=== PATIENT | male | born 1955 | race Caucasian/White ===

== ENCOUNTER 2017-04-15 06:49 | Day surgery (SDC) | payer MEDICAID ==
[2017-04-15] MEDS ORDERED: BUPIVACAINE 0.5% 30 ML SDV ONE (07:14)
[2017-04-15] MEDS ORDERED: ceFAZolin 2 GM/DEXTROSE 100 ML IV ONE (07:27)
--- NOTE | 2017-04-15 07:28 | PDHPUP ---
History & Physical Update H&P update statement: This history and physical update is based on an assessment of the patient which was completed after admission or registration (within 24 hours), but prior to the surgery/procedure. H&P update: H&P reviewed & patient examined, no change in patient's condition since H&P completed
[2017-04-15] MEDS ORDERED: LR 1,000 ML IV ONE (07:35)
[2017-04-15] MEDS ORDERED: LIDOCAINE 1% 2 ML INJ ID PRN (07:35)
--- NOTE | 2017-04-15 09:00 | PDANEPAE ---
ANE History of Present Illness 62 year old male with recent URI about 10 days ago here for hernia repair. ANE Past Medical History Past Medical History: Recent URI. Productive cough stopped about 10 days ago. - Cardiovascular History Hx Hypertension: Yes Hx Arrhythmias: Yes Hx Chest Pain: No Hx Coronary Artery / Peripheral Vascular Disease: Yes Hx CHF / Valvular Disease: Yes Hx Palpitations: No Cardiovascular History Comment: cad. cabg 1998 and redo 2005. aicd. hyperlipidemia. chf - Pulmonary History Hx COPD: No Hx Asthma/Reactive Airway Disease: No Hx Recent Upper Respiratory Infection: No Hx Oxygen in Use at Home: No Hx Sleep Apnea: No Sleep Apnea Screening Result - Last Documented: Positive Pulmonary History Comment: hellen triggers - Neurologic History Hx Cerebrovascular Accident: No Hx Seizures: No Hx Dementia: No - Endocrine History Hx Diabetes: No Hypothyroid: Yes Endocrine History Comment: hypothyroidism - Renal History Hx Renal Disorders: Yes Renal History Comment: difficulty urinating. dribbling - Liver History Hx Hepatic Disorders: No - Neurological & Psychiatric Hx Hx Neurological and Psychiatric Disorders: Yes Neurological / Psychiatric History Comment: depression - Cancer History Hx Cancer: No - Congenital Disorder History Hx Congenital Disorders: No - GI History Hx Gastrointestinal Disorders: No - Other Health History Other Health History: wears glasses - Chronic Pain History Chronic Pain: No - Surgical History Prior Surgeries: dental work. cabg 1998 and redo 2005. aicd placed 07/14/2012 ANE Review of Systems - Exercise capacity METS (RN): 3 METS - Systems Constitutional: Reports: recent illness Respiratory: Reports: no symptoms (recent URI with productive cough) - Pacemaker Pacemaker Type: Permanent Pacer/Defib Pacemaker Dental Insurance Coordinator: [employer] Pacemaker Model: [id number] Pacemaker Mode: VVI Pacemaker Set Rate: 40 Date Pacemaker Last Checked: 2months ago ANE Patient History - Allergies Allergies/Adverse Reactions: No Known Allergies Allergy (Verified 04/12/17 12:06) - Home Medications Home medications: home medication list seen and reviewed Home Medications: Amiodarone HCl 04/12/17 [Last Taken 04/14/17] Aspirin 81mg (*) 04/12/17 [Last Taken 04/11/17] Carvedilol BID 04/12/17 [Last Taken 04/14/17] Clopidogrel Bisulfate 04/12/17 [Last Taken 04/11/17] Entresto 49 mg/51 mg (RX) BID 04/12/17 [Last Taken 04/14/17] Herbals/Supplements -Info Only 04/12/17 [Last Taken 04/14/17] Levothyroxine 04/12/17 [Last Taken 04/14/17] Rosuvastatin Calcium 04/12/17 [Last Taken 04/14/17] Spironolactone 04/12/17 [Last Taken 04/14/17 07:00] - NPO status NPO Since - Liquids (Date): 04/14/17 NPO Since - Liquids (Time): 23:00 NPO Since - Solids (Date): 04/14/17 NPO Since - Solids (Time): 22:00 - Anes Hx Anes Hx: no prior problems - Smoking Hx Smoking Status: Never smoked Marijuana use: No - Alcohol Use Alcohol Use: Rarely - Family Anes Hx Family Anes Hx: neg - N/A Family Hx Anesthesia Complications: none ANE Labs/Vital Signs - Vital Signs Blood Pressure: 126/72 Heart Rate: 42 Respiratory Rate: 20 O2 Sat (%): 95 Height: 185.42 cm Weight: 81.329 kg ANE Physical Exam - Airway Neck exam: FROM Mallampati Score: Class 2 Mouth exam: normal dental/mouth exam - Pulmonary Pulmonary: no respiratory distress, no rales or rhonchi, clear to auscultation - Cardiovascular Cardiovascular: regular rate and rhythym, systolic murmur - ASA Status ASA Status: IV ANE Anesthesia Plan Anesthesia Plan: general endotracheal anesthesia
[2017-04-15] MEDS ORDERED: fentaNYL 100 MCG/2 ML INJ ONE ×3 (09:09→10:31)
[2017-04-15] MEDS ORDERED: PROPOFOL/EMULSION 500 MG/50 ML BOTTLE IV ONE (09:09)
[2017-04-15] MEDS ORDERED: ONDANSETRON 4 MG/2 ML VIAL ONE (09:10)
[2017-04-15] MEDS ORDERED: ROCURONIUM 50 MG/5 ML VIAL ONE (09:10)
[2017-04-15] MEDS ORDERED: DEXAMETHASONE 4 MG/ML VIAL ONE (09:10)
[2017-04-15] MEDS ORDERED: LIDOCAINE 2% 5 ML SDV ONE (09:12)
[2017-04-15] MEDS ORDERED: SUGAMMADEX SODIUM 200 MG/2 ML VIAL IVP ONE (09:54)
[2017-04-15] MEDS ORDERED: HYDROCODONE/APAP 5/325 TAB PO PRN (10:04)
[2017-04-15] MEDS ORDERED: NALOXONE HCL 0.4 MG/ML INJ IVP PRN (10:04)
[2017-04-15] MEDS ORDERED: LR 250 ML IV PRN (10:04)
[2017-04-15] MEDS ORDERED: ALBUTEROL 3 ML DEYVIAL IH PRN (10:04)
[2017-04-15] MEDS ORDERED: ACETAMINOPHEN 500 MG TAB PO PRN (10:04)
[2017-04-15] MEDS ORDERED: PROMETHAZINE HCL 25 MG/ML INJ IVP PRN (10:04)
[2017-04-15] MEDS ORDERED: LABETALOL HCL 50 MG/10 ML SYR IVP PRN (10:04)
--- NOTE | 2017-04-15 10:20 | POSTOPPROG ---
Post Op Note Date of Operation: 04/15/17 Surgeon: Aroldo Pope Railroad Car Cleaner: Britta Fraser Anesthesiologist: Rochelle Rascon Anesthesia: GET(General Endotracheal) Pre-op Diagnosis: BIH Post-op Diagnosis: Same Procedure: Laproscopic bilateral hernia repair with mesh Inf/Abcess present in the surg proc area at time of surgery?: No Depth: Deep Incisional (Fascial) EBL: Minimal
[2017-04-15] MEDS: fentaNYL 100 MCG/2 ML INJ IVP PRN ×2 (10:32→10:50)
--- NOTE | 2017-04-15 10:34 | POSTANESTH ---
Post Anesthetic Evaluation Cardiovascular Status: Normal, Stable Respiratory Status: Normal, Stable Level of Consciousness/Mental Status: Can Participate in Eval, Alert and Oriented Pain Control: Adequate, Prn Tx Ordered Nausea/Vomiting Control: Adequate, Prn Tx Ordered Complications Possibly Related to Anesthesia: None Noted
[2017-04-15 10:42] VITALS: TEMP 97.5
[2017-04-15 11:50] VITALS: BP 136/65; PULSE 50; RESP 18; O2SAT 96
--- NOTE | 2017-04-16 06:34 | GOP ---
[f rep st] OPERATIVE REPORT DATE OF OPERATION: 04/15/2017 SURGEON: Aroldo Pope MD SUBSTATION SUPERINTENDENT: ARCELIA Casillas ANESTHESIOLOGIST: Rochelle Stacy MD PREOPERATIVE DIAGNOSIS: Bilateral inguinal hernias. POSTOPERATIVE DIAGNOSIS: Bilateral inguinal hernias. PROCEDURE PERFORMED: Laparoscopic bilateral inguinal hernia repairs. FINDINGS: The patient was found to have an indirect inguinal hernia on the left and a direct inguin al hernia on the right. DESCRIPTION OF PROCEDURE: Patient was taken to the operating room, where he received satisfactory g eneral endotracheal anesthesia by Dr. Stacy. He was placed in supine position, prepped and draped in the usual sterile fashion. An infraumbilical incision was made. Dissection was extended down t o the fascia, which was incised. A subfascial tunnel was developed in the preperitoneal space, that was dissected free with a balloon dissector, which was replaced with a CO2 insufflation trocar. Tw o other trocars were placed in the lower abdominal midline. Delfino ligament was exposed bilaterally . The cords were mobilized bilaterally. Peritoneum was dissected off the cord structures. On the left, there was a moderate indirect sac which was dissected free and reduced. Hemostasis was assure d. On the right, there was no significant indirect sac. Both sides had small lipoma suture that wa s dissected free and reduced. On the right, there was a moderate-sized femoral indirect hernia. Bi lateral Covidien polyester mesh patches were inserted. On the left, a split patch was used to pass the limb around the cord structures. On the right, an onlay patch was used. Both were anchored in place with AbsorbaTack, securing it to Delfino ligament, the lacunar ligament, and the anterior abdom inal wall outside the internal ring. Hemostasis was carefully obtained. The pneumopreperitoneum wa s released and trocars were removed under direct vision. Trocar sites were closed with 0 Vicryl for the fascia, 4-0 Monocryl subcuticular stitch for the skin. All wounds were infiltrated with 0.5% M arcaine. He tolerated the procedure well. He was taken to the recovery room in good condition. Th ere were no complications. /[id number]/MODL
== END 2017-04-15 11:45 | disposition home or self-care (01) ==
LOC: FSGY 06:49
PROVIDERS: ATTEND Surgery
PROC: 0YQA4ZZ Repair Bilateral Inguinal Region, Percutaneous Endoscopic Approach (ICD-10-PCS; principal; 2017-04-15 08:30)
DX: K40.20 Bilateral inguinal hernia, without obstruction or gangrene, not specified as recurrent (principal); I25.810 Atherosclerosis of coronary artery bypass graft(s) without angina pectoris; I50.22 Chronic systolic (congestive) heart failure; R53.83 Other fatigue; R06.02 Shortness of breath
CPT/HCPCS: 49650; C1727; C1781; J0690; J1100; J2405; J2704; J3010

== ENCOUNTER 2017-09-15 18:38 | Emergency (ER) | payer MEDICAID ==
[2017-09-15 18:51] VITALS: TEMP 97.5
[2017-09-15] MEDS ORDERED: NS 500 ML IV ONE (18:53)
[2017-09-15 18:59] LABS: PLATELET COUNT 241 10^3/uL (150-400)
--- NOTE | 2017-09-15 19:01 | EDPHY ---
H & P Time Seen by Provider: 09/15/17 18:39 HPI/ROS: HPI Anxiety reaction. 62-year-old male by ambulance from his home. This patient has a long history of anxiety as well as heart disease. He has had CABG x2. He has a pacemaker. He reports he has been on multiple medications for his anxiety. Most recently has had trouble with his anxiety and insomnia. His primary care physician prescribed him trazodone recently. He has been taking that and it has been helping him sleep. He reports he was working hard on his computer all day today Ed needing songs and doing other computer work. He reports that he was sitting at his desk working on his computer when he suddenly started to have a sensation of tingling in his legs and in his hands. He also felt that his head was very full and felt lightheaded in his words but not faint. Denies any other associated symptoms. No alcohol tonight. Denies IV drugs and street drugs. ROS: Constitutional: No fever, no chills. As above. Eyes: No discharge. No changes in vision. ENT: No sore throat. No nasal congestion or rhinorrhea. Respiratory: No cough. No shortness of breath. Cardiac: No chest pain, no palpitations. Gastrointestinal: No abdominal pain, no vomiting, no diarrhea. Genitourinary: No hematuria. No dysuria or increased frequency with urination. Musculoskeletal: No back pain. No neck pain. No myalgias or arthralgias. Skin: No rashes. Neurological: No headache. No focal weakness or altered sensation. Past medical history: Hypothyroid, heart disease with CABG x2, pacemaker, anxiety, insomnia. Social history: Nonsmoker. Currently here by himself. No alcohol. Physical Exam: General Appearance: Alert, mildly anxious. Hard to get him to focus but he focuses when directed properly. This patient is responding to questions appropriately and in full sentences. This patient appears well-hydrated and well-nourished. Eyes: Pupils equal and round no pallor or injection. No lid edema, erythema or injection. Respiratory: There are no retractions, lungs are clear to auscultation with good air movement bilaterally. Cardiovascular: Regular rate and rhythm. No murmur. Gastrointestinal: Abdomen is soft and nontender, no masses, bowel sounds normal. No focal tenderness at McBurney's point. No Costa sign. Neurological: Motor sensory function is grossly intact. Cranial nerves are normal. Gait is normal. Skin: Warm and dry, no rashes. Musculoskeletal: Neck is supple and nontender. Extremities are symmetrical. All joints range without pain or impingement. Psychiatric: No agitation. No depression. Database: EKG: EKG time is 7:00 p.m.; EKG shows a narrow complex sinus bradycardia with a ventricular rate of 48. Nonspecific intraventricular conduction delay noted. The DC, QRS, QT intervals are within normal limits. There are no ST-T wave changes indicative of ischemic or injury pattern. This EKG not show significant change from prior EKG from May [id number]. No evidence of right heart strain. Interpreted by me. Imaging: Procedures: Emergency department course: Vital signs reviewed and are normal. An IV was placed by EMS. EKG obtained and read by myself. Patient's presentation is consistent with an anxiety reaction. Cardiac etiology of near syncope unlikely. Acute coronary syndrome unlikely. He declines anxiolytics, Valium or other like medications secondary to prior dependence. 7:40 p.m., patient re-evaluated. Results of emergency department workup discussed with him and his family. Vital signs reviewed and are unremarkable. He is feeling better. I recommended that he takes trazodone tonight as prescribed. He tells me that he wants to try to get off of all of his medications. I explained to him that his medications are prescribed for good reasons. He will follow up with his primary care physician who prescribes in the trazodone tomorrow and ask about alternatives. His presentation is consistent with manic behavior and anxiety. I explained to him that I thought trazodone was the appropriate drug to treat him. He stated he would take his trazodone as prescribed and follow up with his primary physician tomorrow. Return to emergency department precautions were reviewed with him. His and daughter at the bedside. They will take him home. He does know of any other complaints. He feels reassured regarding the result his diagnostic testing here. He was discharged in good condition. Differential Diagnosis: The differential diagnosis on this patient includes but is not limited to anxiety reaction. Acute coronary syndrome, arrhythmia, cardiac etiology of syncope, CVA unlikely. This represents a partial list of diagnoses considered. These considerations are based on history, physical exam, past history, reassessment and diagnostic testing. Smoking Status: Never smoked Constitutional: Initial Vital Signs Temperature (C) 36.4 C 09/15/17 18:44 Heart Rate 52 L 09/15/17 18:44 Respiratory Rate 18 09/15/17 18:44 Blood Pressure 137/74 H 09/15/17 18:44 O2 Sat (%) 99 09/15/17 18:44 O2 Delivery Mode Room Air Allergies/Adverse Reactions: No Known Allergies Allergy (Verified 04/12/17 12:06) Home Medications: Medication Instructions Recorded Amiodarone HCl 04/12/17 Aspirin 81mg (*) 04/12/17 Carvedilol BID 04/12/17 Clopidogrel Bisulfate 04/12/17 Entresto 49 mg/51 mg (RX) BID 04/12/17 Herbals/Supplements -Info Only 04/12/17 Levothyroxine 04/12/17 Rosuvastatin Calcium 04/12/17 Spironolactone 04/12/17 Acetaminophen [Tylenol ES 500 mg 500 mg PO Q6HRS PRN #0 tab 04/15/17 (*)] Medical Decision Making - Data Points Laboratory Results: Laboratory Results 09/15/17 18:40 09/15/17 18:40 09/15/17 09/15/17 18:40 18:40 WBC 6.48 10^3/uL 10^3/uL (3.80-9.50) RBC 4.73 10^6/uL 10^6/uL (4.40-6.38) Hgb 15.4 g/dL g/dL (13.7-17.5) Hct 45.5 % % (40.0-51.0) MCV 96.2 fL fL (81.5-99.8) MCH 32.6 pg pg (27.9-34.1) MCHC 33.8 g/dL g/dL (32.4-36.7) RDW 13.2 % % (11.5-15.2) Plt Count 241 10^3/uL 10^3/uL (150-400) MPV 9.7 fL fL (8.7-11.7) Neut % (Auto) 58.8 % % (39.3-74.2) Lymph % (Auto) 30.2 % % (15.0-45.0) [place] % (Auto) 7.7 % % (4.5-13.0) Eos % (Auto) 2.0 % % (0.6-7.6) Baso % (Auto) 1.1 % % (0.3-1.7) Nucleat RBC Rel Count 0.0 % % (0.0-0.2) Absolute Neuts (auto) 3.81 10^3/uL 10^3/uL (1.70-6.50) Absolute Lymphs (auto) 1.96 10^3/uL 10^3/uL (1.00-3.00) Absolute Monos (auto) 0.50 10^3/uL 10^3/uL (0.30-0.80) Absolute Eos (auto) 0.13 10^3/uL 10^3/uL (0.03-0.40) Absolute Basos (auto) 0.07 10^3/uL 10^3/uL (0.02-0.10) Absolute Nucleated RBC 0.00 10^3/uL 10^3/uL (0-0.01) Immature Gran % 0.2 % % (0.0-1.1) Immature Gran # 0.01 10^3/uL 10^3/uL (0.00-0.10) Sodium 143 mEq/L mEq/L (134-144) Potassium 4.3 mEq/L mEq/L (3.5-5.2) Chloride 103 mEq/L mEq/L (97-110) Carbon Dioxide 26 mEq/l mEq/l (22-31) Anion Gap 14 mEq/L mEq/L (8-16) BUN 23 mg/dL mg/dL (7-23) Creatinine 1.2 mg/dL mg/dL (0.7-1.3) Estimated GFR > 60 Glucose 140 mg/dL H mg/dL (70-100) Calcium 9.9 mg/dL mg/dL (8.5-10.4) Troponin I < 0.012 ng/mL ng/mL (0.000-0.034) TSH 1.520 uIU/mL uIU/mL (0.465-4.680) Medications Given: Discontinued Medications Sodium Chloride (Ns) 500 mls @ 1,000 mls/hr IV EDNOW ONE PRN Reason: Protocol Stop: 09/15/17 19:22 Last Admin: 09/15/17 19:35 Dose: 500 mls Departure - Departure Disposition: Home, Routine, Self-Care Clinical Impression: Anxiety reaction Condition: Good Instructions: Anxiety (ED) Additional Instructions: Read and follow provided instructions. Follow-up with your primary care physician tomorrow as discussed for review of your medication and discuss alternatives to trazodone. Take medication as prescribed. I feel that if you have trouble sleeping tonight you should take your trazodone as prescribed. Return to the emergency department for worsening symptoms or other serious concerns. Referrals: Patient,NotPresent [Unknown] - As per Instructions
--- NOTE | 2017-09-15 19:02 | CPEKG ---
Heart Rate: 48 RR Interval: 1250 P-R Interval: 176 QRSD Interval: 126 QT Interval: 464 QTC Interval: 415 P [place]: 28 QRS [place]: 50 T Wave [place]: 253 EKG Severity - ABNORMAL ECG - EKG Impression: SINUS BRADYCARDIA EKG Impression: NONSPECIFIC INTRAVENTRICULAR CONDUCTION DELAY EKG Impression: PROBABLE LVH WITH SECONDARY REPOL ABNRM Electronically Signed By: Dave Ospina 15-Sep-2017 21:05:13
[2017-09-15 19:37] VITALS: BP 102/55; PULSE 49; RESP 20; O2SAT 98
== END 2017-09-15 19:55 | disposition home or self-care (01) ==
LOC: EDUNIT#
DX: F41.1 Generalized anxiety disorder (principal); E86.9 Volume depletion, unspecified; Z79.82 Long term (current) use of aspirin; Z95.0 Presence of cardiac pacemaker; Z95.1 Presence of aortocoronary bypass graft

== ENCOUNTER 2017-09-16 10:52 | Emergency (ER) | payer MEDICAID ==
[2017-09-16 11:18] VITALS: BP 136/90; PULSE 55; RESP 16; TEMP 97.9; O2SAT 96
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
== END 2017-09-16 12:00 | disposition home or self-care (01) ==
LOC: SUPCPDRO 10:52 → CED 10:52
DX: F30.8 Other manic episodes (principal); T43.215A Adverse effect of selective serotonin and norepinephrine reuptake inhibitors, initial encounter; Z79.82 Long term (current) use of aspirin

== ENCOUNTER 2017-09-20 14:58 | Emergency (ER) | payer MEDICAID ==
--- NOTE | 2017-09-20 15:14 | EDPHY ---
H & P Stated Complaint: "Im here for acid reflux but it makes me feel like Im having a hrt attck" Time Seen by Provider: 09/20/17 15:13 HPI/ROS: CHIEF COMPLAINT: Chest pain, anxiety HISTORY OF PRESENT ILLNESS: The patient presents the ED with chronic chest pain. The patient has a history of coronary artery disease status post CABG. The patient is somewhat overwhelmingly concerned about medications he is been prescribed by his primary care provider including Prilosec, trazodone and potentially recommendation to begin lithium and Lunesta. The patient is under the care of Dr. Mendoza from Cardiology. The patient has been struggling with symptoms of acid reflux however is concerned about the potential toxic profile of the medications he has been prescribed. The patient contacted his identification technician today with complaints of reported worsening nonexertional chest pain and was referred to the ED for further evaluation. The patient denies any recent history of coronary intervention. He denies additional acute complaints. REVIEW OF SYSTEMS: A comprehensive 10 point review of systems is otherwise negative aside from elements mentioned in the history of present illness. Source: Patient Exam Limitations: No limitations - Personal History Current Tetanus/Diphtheria Vaccine: Unsure Current Tetanus Diphtheria and Acellular Pertussis (TDAP): Unsure - Medical/Surgical History Hx Asthma: No Hx Chronic Respiratory Disease: No Hx Diabetes: No Hx Cardiac Disease: Yes Hx Renal Disease: No Hx Cirrhosis: No Hx Alcoholism: No Hx HIV/AIDS: No Hx Splenectomy or Spleen Trauma: No Other PMH: -CABG--double bypass,8 stents?,defibrillator-icd. ?mental health struggles - Social History Smoking Status: Never smoked - Physical Exam Exam: General Appearance: Alert, no distress Eyes: Pupils equal and round no pallor or injection ENT, Mouth: Mucous membranes moist Respiratory: There are no retractions, lungs are clear to auscultation Cardiovascular: Regular rate and rhythm Gastrointestinal: Abdomen is soft and nontender, no masses, bowel sounds normal Neurological: A&O, normal motor function, normal sensory exam, normal cranial nerves Skin: Warm and dry, no rashes Musculoskeletal: Neck is supple nontender Extremities: symmetrical, full range of motion Constitutional: Initial Vital Signs Temperature (C) 37.0 C 09/20/17 15:00 Heart Rate 48 L 09/20/17 15:00 Respiratory Rate 18 09/20/17 15:00 Blood Pressure 131/78 H 09/20/17 15:00 O2 Sat (%) 95 09/20/17 15:00 O2 Delivery Mode Room Air Allergies/Adverse Reactions: No Known Allergies Allergy (Verified 09/16/17 11:00) Home Medications: Medication Instructions Recorded Amiodarone HCl 04/12/17 Aspirin 81mg (*) 04/12/17 Carvedilol BID 04/12/17 Clopidogrel Bisulfate 04/12/17 Entresto 49 mg/51 mg (RX) BID 04/12/17 Herbals/Supplements -Info Only 04/12/17 Levothyroxine 04/12/17 Rosuvastatin Calcium 04/12/17 Spironolactone 04/12/17 Acetaminophen [Tylenol ES 500 mg 500 mg PO Q6HRS PRN #0 tab 04/15/17 (*)] Medical Decision Making - Diagnostics EKG Interpretation: EKG: Complete interpretation has been separately recorded in the [employer] archive. Summary impression: Sinus rhythm, left bundle branch block, nonspecific ST T wave changes unchanged from prior EKG. ED Course/Re-evaluation: The patient presents to the ED with atypical chest pain. He is in no acute distress. I reviewed the patient's past medical records. The patient's EKG demonstrates no evidence of acute ischemia. The patient's troponin is unchanged. The patient has had several days to weeks of symptoms. At this point time my suspicion for acute coronary syndrome is low. I do feel the patient can follow up with his regular identification technician to review his medications and discuss further risk stratification. Differential Diagnosis: Differential diagnosis considered include gastroesophageal reflux, acute coronary syndrome, pericarditis, infarction - Data Points Laboratory Results: Laboratory Results 09/20/17 15:14 09/20/17 15:14 09/20/17 09/20/17 15:14 15:14 WBC 5.43 10^3/uL 10^3/uL (3.80-9.50) RBC 4.71 10^6/uL 10^6/uL (4.40-6.38) Hgb 15.9 g/dL g/dL (13.7-17.5) Hct 44.9 % % (40.0-51.0) MCV 95.3 fL fL (81.5-99.8) MCH 33.8 pg pg (27.9-34.1) MCHC 35.4 g/dL g/dL (32.4-36.7) RDW 13.2 % % (11.5-15.2) Plt Count 224 10^3/uL 10^3/uL (150-400) MPV 10.1 fL fL (8.7-11.7) Neut % (Auto) 56.8 % % (39.3-74.2) Lymph % (Auto) 26.5 % % (15.0-45.0) [place] % (Auto) 13.6 % H % (4.5-13.0) Eos % (Auto) 2.0 % % (0.6-7.6) Baso % (Auto) 0.9 % % (0.3-1.7) Nucleat RBC Rel Count 0.0 % % (0.0-0.2) Absolute Neuts (auto) 3.08 10^3/uL 10^3/uL (1.70-6.50) Absolute Lymphs (auto) 1.44 10^3/uL 10^3/uL (1.00-3.00) Absolute Monos (auto) 0.74 10^3/uL 10^3/uL (0.30-0.80) Absolute Eos (auto) 0.11 10^3/uL 10^3/uL (0.03-0.40) Absolute Basos (auto) 0.05 10^3/uL 10^3/uL (0.02-0.10) Absolute Nucleated RBC 0.00 10^3/uL 10^3/uL (0-0.01) Immature Gran % 0.2 % % (0.0-1.1) Immature Gran # 0.01 10^3/uL 10^3/uL (0.00-0.10) Sodium 141 mEq/L mEq/L (135-145) Potassium 4.7 mEq/L mEq/L (3.5-5.2) Chloride 103 mEq/L mEq/L (97-110) Carbon Dioxide 27 mEq/l mEq/l (22-31) Anion Gap 11 mEq/L mEq/L (8-16) BUN 22 mg/dL mg/dL (7-23) Creatinine 1.1 mg/dL mg/dL (0.7-1.3) Estimated GFR > 60 Glucose 81 mg/dL mg/dL (70-100) Calcium 9.7 mg/dL mg/dL (8.5-10.4) Troponin I 0.018 ng/mL ng/mL (0.000-0.034) Departure - Departure Disposition: Home, Routine, Self-Care Clinical Impression: Gastroesophageal reflux Condition: Good Instructions: Gastroesophageal Reflux Disease (ED) Additional Instructions: 1. Your EKG demonstrates no evidence of a heart attack in your troponin testing is normal. 2. Please follow up with your regular identification technician to review your outpatient medications. 3. I do recommend Maalox as needed for indigestion. Referrals: Preston Mendoza MD [Medical Doctor] - As per Instructions Estefania Evans MD [Medical Doctor] - As per Instructions
--- NOTE | 2017-09-20 15:43 | CPEKG ---
Heart Rate: 44 RR Interval: 1364 P-R Interval: 192 QRSD Interval: 158 QT Interval: 524 QTC Interval: 449 P Brundidge: 64 QRS Brundidge: -54 T Wave [place]: 107 EKG Severity - ABNORMAL ECG - EKG Impression: SINUS BRADYCARDIA EKG Impression: LEFT BUNDLE BRANCH BLOCK Electronically Signed By: Low Dooley 20-Sep-2017 15:47:01
[2017-09-20 16:40] LABS: PLATELET COUNT 224 10^3/uL (150-400)
[2017-09-20 17:43] VITALS: BP 146/91; PULSE 50; RESP 16; TEMP 98.4; O2SAT 98
== END 2017-09-20 17:40 | disposition home or self-care (01) ==
DX: K21.9 Gastro-esophageal reflux disease without esophagitis (principal); Z95.1 Presence of aortocoronary bypass graft; Z79.82 Long term (current) use of aspirin

== ENCOUNTER 2017-12-05 06:01 | Emergency (ER) | payer MEDICAID ==
[2017-12-05 06:09] VITALS: O2SAT 98
[2017-12-05] MEDS ORDERED: ACETAMINOPHEN 500 MG TAB PO ONE (07:08)
[2017-12-05] MEDS ORDERED: PHENAZOPYRIDINE HCL 200 MG TAB PO ONE (07:10)
--- NOTE | 2017-12-05 07:12 | EDPHY ---
H & P Stated Complaint: PENIS SWELLING SINCE 11/25 URO PROCEDURE, HAS HAD PAIN SINCE Time Seen by Provider: 12/05/17 06:38 HPI/ROS: HPI The patient presents with penile pain which has been present since November 25 when he underwent a urodynamic test for nocturia with his urologist Dr. Conner. He had a cystoscopy as well at that time. He had ongoing pain so revisited Dr. Conner office on December 02 and seems to have had a disagreement with Dr. Conner office and was dismissed from the practice. This is made the patient quite upset. He did have a urinalysis performed on that date. Cultures have now returned and show no pathologic bacteria. The patient has spoken with a patient advocate about his situation as he feels that he underwent this test unnecessarily and now he is dealing with the consequences. He notices some ecchymoses and abrasions to his penis and when he urinates he has pain.. REVIEW OF SYSTEMS Constitutional: No fever, no chills. Eyes: No discharge. ENT: No sore throat. Cardiovascular: No chest pain, no palpitations. Respiratory: No cough, no shortness of breath. Gastrointestinal: No abdominal pain, no vomiting. Genitourinary: No hematuria. Musculoskeletal: No back pain. Skin: No rashes. Neurological: No headache. PMHx: CAD with history of CABG, history of anxiety, possible history of BPH per old record Soc Hx: Housed with his PHYSICAL General Appearance: Anxious and rambling Eyes: Pupils equal and round no pallor or injection ENT, Mouth: Mucous membranes moist Respiratory: There are no retractions, lungs are clear to auscultation Cardiovascular: Regular rate and rhythm Gastrointestinal: Abdomen is soft and non-tender, no masses, bowel sounds normal there is a small area of ecchymoses to the glans which measures about 2 mm, there is slight erythema of the suresh Neurological: A&O, moves all extremities Skin: Warm and dry, no rashes Musculoskeletal: Neck is supple non tender Extremities: symmetrical, full range of motion Psychiatric: Patient is oriented X 3, there is no agitation Source: Patient Exam Limitations: No limitations - Personal History Current Tetanus/Diphtheria Vaccine: No - Medical/Surgical History Hx Asthma: No Hx Chronic Respiratory Disease: No Hx Diabetes: No Hx Cardiac Disease: Yes Hx Renal Disease: No Hx Cirrhosis: No Hx Alcoholism: No Hx HIV/AIDS: No Hx Splenectomy or Spleen Trauma: No Other PMH: -CABG--double bypass,8 stents?,defibrillator-icd. ?mental health struggles. ENLARGED PROSTATE - Social History Smoking Status: Never smoked Constitutional: Initial Vital Signs Temperature (C) 36.5 C 12/05/17 06:05 Heart Rate 56 L 12/05/17 06:05 Respiratory Rate 22 H 12/05/17 06:05 Blood Pressure 155/91 H 12/05/17 06:05 O2 Sat (%) 98 12/05/17 06:05 O2 Delivery Mode Room Air Allergies/Adverse Reactions: No Known Allergies Allergy (Verified 12/05/17 06:03) Home Medications: Medication Instructions Recorded Amiodarone HCl 04/12/17 Aspirin 81mg (*) 04/12/17 Carvedilol BID 04/12/17 Clopidogrel Bisulfate 04/12/17 Entresto 49 mg/51 mg (RX) BID 04/12/17 Herbals/Supplements -Info Only 04/12/17 Levothyroxine 04/12/17 Rosuvastatin Calcium 04/12/17 Spironolactone 04/12/17 Acetaminophen [Tylenol ES 500 mg 500 mg PO Q6HRS PRN #0 tab 04/15/17 (*)] Medical Decision Making Differential Diagnosis: This is a 62-year-old man with history of CAD, anxiety, who recently underwent urologic procedure who since has had penile pain. He has a urine culture from 3 days ago which is negative. He does not have any very obvious penile edema or erythema. He has not taken any medication for this. I have recommended he take Tylenol and pyridium to see if these medications help his symptoms. He is in agreement with this. He does have a follow-up appointment with Dr. Cavanaugh for ongoing urologic care. - Data Points Medications Given: Discontinued Medications Acetaminophen (Tylenol) 650 mg PO EDNOW ONE Stop: 12/05/17 07:09 Last Admin: 12/05/17 07:20 Dose: 650 mg Phenazopyridine HCl (Pyridium) 200 mg PO EDNOW ONE Stop: 12/05/17 07:11 Last Admin: 12/05/17 07:20 Dose: 200 mg Departure - Departure Disposition: Home, Routine, Self-Care Clinical Impression: Penile pain Condition: Good Instructions: Dysuria (ED) Additional Instructions: I recommend you take acetaminophen 650 mg every 6 hr. You can also take pyridium (Azo) 100 mg every 6 hr. Both of these medications should be taken as needed for pain. You can talk to your chainman about taking ibuprofen. Please follow-up with Dr. Cavanaugh. Referrals: Jorge Cavanaugh MD [Medical Doctor] - As per Instructions
[2017-12-05] MEDS ORDERED: ACETAMINOPHEN 325 MG TAB ONE (07:16)
[2017-12-05 07:24] VITALS: BP 151/91; PULSE 55; RESP 18; TEMP 98.1
== END 2017-12-05 07:15 | disposition home or self-care (01) ==
DX: N48.89 Other specified disorders of penis (principal); I25.810 Atherosclerosis of coronary artery bypass graft(s) without angina pectoris; Z79.82 Long term (current) use of aspirin

== ENCOUNTER → 2017-12-13 | Outpatient (CLI) | payer MEDICAID | LOC: FIMAGING 11:37 | PROVIDERS: ATTEND Internal Medicine Cardiovascular Disease | DX: J98.09 Other diseases of bronchus, not elsewhere classified (principal); Z95.5 Presence of coronary angioplasty implant and graft ==

== ENCOUNTER 2017-12-21 04:56 | Emergency (ER) | payer MEDICAID ==
--- NOTE | 2017-12-21 05:00 | EDPHY ---
H & P Time Seen by Provider: 12/21/17 04:59 HPI/ROS: HPI CHIEF COMPLAINT: Penile pain HISTORY OF PRESENT ILLNESS: Patient is 62-year-old male, presents emergency room with penile pain. Denies any testicular pain. Patient reports that he recently had a workup for nocturia, had urodynamic testing, cystoscopy, by Dr. Conner, has subsequently seen Dr. Cavanaugh and diagnosed with pelvic floor pain syndrome, presents emergency room with penile pain. He states shaft of his penis hurts. Worse when he urinates and additionally he is unable to have intercourse due to pain with erection. He states Dr. Cavanaugh evaluated him for this was placed on azo, anti-inflammatory pain medicine. He presents emergency room because he is having ongoing pain unable to have intercourse last night this upset him he became anxious and decided come to the ER. Patient denies any fever back pain or abdominal pain denies suprapubic pain. Denies vomiting or diarrhea. Main complaint is penile shaft pain. Past Medical History: Coronary artery disease, CABG, BPH (previous records), anxiety Past Surgical History: CABG Social History: Denies daily use of drugs alcohol tobacco. Family History: Noncontributory ROS REVIEW OF SYSTEMS: A comprehensive 10 point review of systems is otherwise negative aside from elements mentioned in the history of present illness. Exam Constitutional anxious with pressured speech, triage nursing summary reviewed, vital signs reviewed, awake/alert. Eyes normal conjunctivae and sclera, EOMI, PERRLA. HENT normal inspection, atraumatic, moist mucus membranes, no epistaxis, neck supple/ no meningismus, no raccoon eyes. Respiratory clear to auscultation bilaterally, normal breath sounds, no respiratory distress, no wheezing. Cardiovascular rate normal, regular rhythm, no murmur, no edema, distal pulses normal. Gastrointestinal soft, non-tender, no rebound, no guarding, normal bowel sounds, no distension, no pulsatile mass. Genitourinary exam: REMI RN at bedside, unremarkable exam normal testicular lye, circumcised male, no obvious lesions, no penile trauma visualized. Musculoskeletal no midline vertebral tenderness, full range of motion, no calf swelling, no tenderness of extremities, no meningismus, good pulses, neurovascularly intact. Skin pink, warm, & dry, no rash, skin atraumatic. Neurologic awake, alert and oriented x 3, AAOx3, moves all 4 extremities equally, motor intact, sensory intact, CN II-XII intact, normal cerebellar, normal vision, normal speech. Psychiatric normal mood/affect. Heme/Lymph/Immune no lymphadenopathy. Differential Diagnosis: Includes but is not limited to in a particular order urinary tract infection, urethritis, acute on chronic pain all pain. Medical Decision Making: Plan for this patient check basic blood work including kidney function, check UA, will give a dose of Benedict for pain control. Re-evaluation: Exam is unremarkable for acute abnormality of his penis on exam. No significant swelling or lesions noted. Normal exam. Went for patient's blood work and urinalysis results with him. I have a great answer for his penile pain. However I do recommend he continues to follow up with Urology. Refer back to Dr. Cavanaugh. I have given him very limited supply of Benedict. Blood work and urinalysis reviewed. Urinalysis is somewhat hard to interpret due to the significant amount azo the patient is taking. There are some white blood cells. I did review the patient's previous urine culture. 0551: Patient re-evaluated does feel slightly better after Benedict. Patient requesting antibiotic for dysuria penile pain. I will place him on Keflex. Urine culture sent. Urinalysis hard to evaluate given azo. Take-home pack of Benedict for the weekend. Recommend follow up with Dr. Cavanaugh. He is agreeable this plan and feels much better. He is agreeable for discharge. Return precautions discussed. Source: Patient - Medical/Surgical History Hx Asthma: No Hx Chronic Respiratory Disease: No Hx Diabetes: No Hx Cardiac Disease: Yes Hx Renal Disease: No Hx Cirrhosis: No Hx Alcoholism: No Hx HIV/AIDS: No Hx Splenectomy or Spleen Trauma: No Other PMH: -CABG--double bypass,8 stents?,defibrillator-icd. ?mental health struggles. ENLARGED PROSTATE - Social History Smoking Status: Never smoked Constitutional: Initial Vital Signs Temperature (C) 36.9 C 12/21/17 05:00 Heart Rate 57 L 12/21/17 05:00 Respiratory Rate 16 12/21/17 05:00 Blood Pressure 140/72 H 12/21/17 05:00 O2 Sat (%) 95 12/21/17 05:00 O2 Delivery Mode Room Air Allergies/Adverse Reactions: No Known Allergies Allergy (Verified 12/21/17 05:01) Home Medications: Medication Instructions Recorded Amiodarone HCl 04/12/17 Aspirin 81mg (*) 04/12/17 Carvedilol BID 04/12/17 Clopidogrel Bisulfate 04/12/17 Entresto 49 mg/51 mg (RX) BID 04/12/17 Herbals/Supplements -Info Only 04/12/17 Levothyroxine 04/12/17 Rosuvastatin Calcium 04/12/17 Spironolactone 04/12/17 Acetaminophen [Tylenol ES 500 mg 500 mg PO Q6HRS PRN #0 tab 04/15/17 (*)] Cephalexin [Keflex] 500 mg PO Q6H #28 cap 12/21/17 Medical Decision Making - Data Points Laboratory Results: Laboratory Results 12/21/17 05:15 12/21/17 12/21/17 12/21/17 05:15 05:15 05:10 WBC 6.57 10^3/uL 10^3/uL (3.80-9.50) RBC 4.67 10^6/uL 10^6/uL (4.40-6.38) Hgb 15.0 g/dL g/dL (13.7-17.5) Hct 44.1 % % (40.0-51.0) MCV 94.4 fL fL (81.5-99.8) MCH 32.1 pg pg (27.9-34.1) MCHC 34.0 g/dL g/dL (32.4-36.7) RDW 13.2 % % (11.5-15.2) Plt Count 225 10^3/uL 10^3/uL (150-400) MPV 9.7 fL fL (8.7-11.7) Neut % (Auto) 56.4 % % (39.3-74.2) Lymph % (Auto) 30.7 % % (15.0-45.0) [place] % (Auto) 10.7 % % (4.5-13.0) Eos % (Auto) 1.1 % % (0.6-7.6) Baso % (Auto) 0.9 % % (0.3-1.7) Nucleat RBC Rel Count 0.0 % % (0.0-0.2) Absolute Neuts (auto) 3.71 10^3/uL 10^3/uL (1.70-6.50) Absolute Lymphs (auto) 2.02 10^3/uL 10^3/uL (1.00-3.00) Absolute Monos (auto) 0.70 10^3/uL 10^3/uL (0.30-0.80) Absolute Eos (auto) 0.07 10^3/uL 10^3/uL (0.03-0.40) Absolute Basos (auto) 0.06 10^3/uL 10^3/uL (0.02-0.10) Absolute Nucleated RBC 0.00 10^3/uL 10^3/uL (0-0.01) Immature Gran % 0.2 % % (0.0-1.1) Immature Gran # 0.01 10^3/uL 10^3/uL (0.00-0.10) Sodium Pending Potassium Pending Chloride Pending Carbon Dioxide Pending Anion Gap Pending BUN Pending Creatinine Pending Estimated GFR Pending Glucose Pending Calcium Pending Urine Color ORANGE Urine Appearance CLEAR Urine pH 5.0 (5.0-7.5) Ur Specific [place] 1.032 H (1.002-1.030) Urine Protein TNP Urine Ketones TNP Urine Blood TNP Urine Nitrate TNP Urine Bilirubin TNP Urine Urobilinogen TNP Ur Leukocyte Esterase TNP Urine RBC 1-3 /hpf /hpf (0-3) Urine WBC 5-10 /hpf H /hpf (0-3) Ur Epithelial Cells TRACE /lpf /lpf (NONE-1+) Hyaline Casts 1-5 /lpf /lpf (0-1) Urine Mucus 3+ /lpf H /lpf (NONE-1+) Urine Glucose TNP Medications Given: Discontinued Medications Hydrocodone Bitart/Acetaminophen (Benedict 5/325) 1 tab PO EDNOW ONE Stop: 12/21/17 05:12 Last Admin: 12/21/17 05:14 Dose: 1 tab Departure - Departure Disposition: Home, Routine, Self-Care Clinical Impression: Penile pain Condition: Good Instructions: Dysuria (ED) Additional Instructions: 1. Follow up with Dr. Cavanaugh. 2. Return emergency room if you have severe pain worsening symptoms questions or concerns. 3. Continue anti-inflammatory pain medicine. Recommend Motrin. On a full stomach. 4. You continue your azo. 5. Benedict if you are having severe pain. Limited supply provided Referrals: NONE *PRIMARY CARE P,. [Unknown] - As per Instructions Jorge Cavanaugh MD [Medical Doctor] - As per Instructions Prescriptions: Cephalexin [Keflex] 500 mg PO Q6H #28 cap
[2017-12-21 05:03] VITALS: BP 140/72
[2017-12-21] MEDS ORDERED: HYDROCOD/APAP 5/325 PREPACK#6 BTL TAKEHOME ONE (05:11)
[2017-12-21] MEDS ORDERED: HYDROCODONE/APAP 5/325 TAB PO ONE (05:11)
[2017-12-21 05:38] LABS: PLATELET COUNT 225 10^3/uL (150-400)
== END 2017-12-21 05:59 | disposition home or self-care (01) ==
DX: N48.89 Other specified disorders of penis (principal); I25.810 Atherosclerosis of coronary artery bypass graft(s) without angina pectoris; Z79.82 Long term (current) use of aspirin

== ENCOUNTER 2017-12-23 02:07 | Emergency (ER) | payer MEDICAID ==
--- NOTE | 2017-12-23 03:30 | EDPHY ---
H & P Stated Complaint: penis pain anxiety Time Seen by Provider: 12/23/17 02:31 HPI/ROS: HPI The patient presents with anxiety and insomnia for the last 3 nights, sleeping for about 2 hr at a stretch. He is concerned because of his current medical situation. He has been dealing with penile and perennial pain for the last several weeks after urologic procedure. He has been seeing his primary care doctor, to urologist, a therapist and is concerned about his ongoing pain. He was in the ER for the last 2 nights and has received [place] 6 packs each time. This is helping with the pain, however the patient is concerned. He says that because of his past cardiac history he is at higher risk of heart attack if he gets to stressed. He has been trying Lunesta for sleep without much improvement. He was previously on Lexapro, though is no longer taking this. In addition to the [place] he was prescribed, he is taking azo for pain. He has a urine culture from yesterday which is negative. He was given a prescription for Keflex. He says he is at the end of his rope and he is requesting admission to the hospital for nursing care and observation. REVIEW OF SYSTEMS Constitutional: No fever, no chills. Eyes: No discharge. ENT: No sore throat. Cardiovascular: No chest pain, no palpitations. Respiratory: No cough, no shortness of breath. Gastrointestinal: No abdominal pain, no vomiting. Genitourinary: No hematuria. Musculoskeletal: No back pain. Skin: No rashes. Neurological: No headache. 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 PHYSICAL General Appearance: Alert, anxious and pacing Eyes: Pupils equal and round no pallor or injection ENT, Mouth: Mucous membranes moist Respiratory: There are no retractions, lungs are clear to auscultation Cardiovascular: Regular rate and rhythm Gastrointestinal: Abdomen is soft and non-tender, no masses, bowel sounds normal Neurological: A&O, moves all extremities Skin: Warm and dry, no rashes Musculoskeletal: Neck is supple non tender Extremities: symmetrical, full range of motion Psychiatric: Patient is oriented X 3, there is no agitation Source: Patient Exam Limitations: No limitations - Personal History Current Tetanus/Diphtheria Vaccine: Unsure Current Tetanus Diphtheria and Acellular Pertussis (TDAP): Unsure - Medical/Surgical History Hx Asthma: No Hx Chronic Respiratory Disease: No Hx Diabetes: No Hx Cardiac Disease: Yes Hx Renal Disease: No Hx Cirrhosis: No Hx Alcoholism: No Hx HIV/AIDS: No Hx Splenectomy or Spleen Trauma: No Other PMH: -CABG--double bypass,8 stents?,defibrillator-icd. ?mental health struggles. ENLARGED PROSTATE - Social History Smoking Status: Never smoked Constitutional: Initial Vital Signs Temperature (C) 36.6 C 12/23/17 02:09 Heart Rate 58 L 12/23/17 02:09 Respiratory Rate 16 12/23/17 02:09 Blood Pressure 132/88 H 12/23/17 02:09 O2 Sat (%) 96 12/23/17 02:09 O2 Delivery Mode Room Air Allergies/Adverse Reactions: No Known Allergies Allergy (Verified 12/21/17 05:01) Home Medications: Medication Instructions Recorded Amiodarone HCl 04/12/17 Aspirin 81mg (*) 04/12/17 Carvedilol BID 04/12/17 Clopidogrel Bisulfate 04/12/17 Entresto 49 mg/51 mg (RX) BID 04/12/17 Herbals/Supplements -Info Only 04/12/17 Levothyroxine 04/12/17 Rosuvastatin Calcium 04/12/17 Spironolactone 04/12/17 Acetaminophen [Tylenol ES 500 mg 500 mg PO Q6HRS PRN #0 tab 04/15/17 (*)] Cephalexin [Keflex] 500 mg PO Q6H #28 cap 12/21/17 Medical Decision Making Differential Diagnosis: This is a 62-year-old male with underlying anxiety who presents with weeks of penile pain which seems to be leading to increased anxiety and insomnia becoming more and more difficult to manage. There is a concern for psychosomatic component of his pain. 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 He is followed by a therapist though seems to need more mental health support. I do not feel he is suitable for an M1 hold at this time as he is not suicidal. I have discussed his situation with him at length and have encouraged him to work on his outpatient resources. He and his spoke with our charge nurse at length as well. We will put in a referral for case management. We plan to discharge him from the emergency department. Departure - Departure Disposition: Home, Routine, Self-Care Clinical Impression: Penile pain, Anxiety, Insomnia Instructions: Bipolar Disorder (ED), Insomnia (ED), Anxiety (ED) Additional Instructions: 1. Please contact you psychiatrist Dr Melgoza and schedule a appt for MUNIRA 2. If you are unable to see them please contact [facility] tomorrow for evaluation 3. If you feel you need additional help for mental health you can always return to the emergency department Referrals: [facility],. [Clinic] - As per Instructions [facility],. [Clinic] - As per Instructions
[2017-12-23 04:08] VITALS: BP 143/61
== END 2017-12-23 04:08 | disposition home or self-care (01) ==
DX: F41.9 Anxiety disorder, unspecified (principal); G47.00 Insomnia, unspecified; N48.89 Other specified disorders of penis; I25.810 Atherosclerosis of coronary artery bypass graft(s) without angina pectoris; Z79.82 Long term (current) use of aspirin

== ENCOUNTER → 2019-01-21 | Outpatient (CLI) | payer OTHER, MEDICAID | LOC: FIMAGING 13:18 | PROVIDERS: ATTEND Internal Medicine Cardiovascular Disease | DX: I48.91 Unspecified atrial fibrillation (principal); Z79.899 Other long term (current) drug therapy ==